=== PATIENT | female | born 1945 | race Caucasian/White ===

== ENCOUNTER 2025-05-31 23:31 | Emergency (ER) | payer OTHER, MEDICARE ==
[~2025-05-31] VITALS: Ht 162.6 cm; Wt 45.9 kg
[2025-06-01] MEDS ORDERED: diazePAM 5 MG TAB PO ONE (00:15)
[2025-06-01] MEDS ORDERED: HYDROCODONE/ACETA 5/325 TAB PO ONE (00:15)
--- OUTSIDE RECORDS SUMMARY | 2025-06-01 00:34 | XMS ---
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 Kelsey has no Care Guidelines for this patient. Pardeep VISIT COUNT (12 MO.) 1 OPHELIA Tsai M.C.[facility] TOTAL 2 NOTE: Visits indicate total known visits. ED/C VISIT TRACKING (12 MO.) 05/31/2025 23:34 OPHELIA [facility]askins OR TYPE: Emergency COMPLAINT: - SPASMS 05/31/2025 09:58 [facility] TYPE: Emergency COMPLAINT: - Back pain and spasms 13 hours DIAGNOSES: - Low back pain, unspecified - Other chronic pain - Back Pain - Back pain and spasms 13 hours INPATIENT VISIT TRACKING (12 MO.) No inpatient visits to display in this time frame [email or web address]
[2025-06-01 02:11] VITALS: BP 124/78
== END 2025-06-01 02:11 | disposition home or self-care (01) ==
LOC: ED 23:31
DX: M54.50 Low back pain, unspecified (principal); G89.29 Other chronic pain; Z98.1 Arthrodesis status; Z88.6 Allergy status to analgesic agent; Z88.5 Allergy status to narcotic agent; Z88.8 Allergy status to other drugs, medicaments and biological substances
CPT/HCPCS: 99283